=== PATIENT | female | born 1990 | race Caucasian/White ===

== ENCOUNTER 2016-12-09 10:23 | Observation (INO) | payer MEDICAID ==
[~2016-12-09] VITALS: Ht 157.5 cm; Wt 72.6 kg
[2016-12-09 10:25] VITALS: BP 131/76; PULSE 87; RESP 16; TEMP 98; O2SAT 99
--- NOTE | 2016-12-09 10:52 | PD ---
HPI Chief Complaint: Abdominal Pain Time Seen by Provider: 10:44 Travel History International Travel<30 days: No Contact w/Intl Traveler<30days: No Traveled to known affect area: No History of Present Illness HPI 26-year-old female arrives here with 1 day of abdominal pain. The pain seems to radiate from the upper anterior abdomen down into the region of the pelvis and back up towards the posterior of the upper abdomen. There has been no nausea vomiting diarrhea or fever. The patient has scant white discharge, highly unusual for her. She notes some spotting over the last few days which is typical for her menstruation and she has a history of irregular cycles. PFSH Past Medical History Diminished Hearing: No Psychiatric: No Immunizations Current: Yes ?: Unknown : 5 Para: 1 Miscarriage: 4 : 0 Past Surgical History Section: Yes (x 1) Gynecologic Surgery: Yes (D/C AFTER MISCARRIAGE) Social History Alcohol Use: Yes (2 BEERS 2 TIMES A WEEK) Tobacco Use: No (FORMER) Substance Use: No Allergies-Medications (Allergen,Severity, Reaction): Coded Allergies: No Known Allergies (Verified , 12/09/16) Reported Meds & Prescriptions Reported Meds & Active Scripts Active Reported Multiple Vitamin 1 Tab 1 Tab PO DAILY Ibuprofen 600 Mg Tab 600 Mg PO Q6H PRN Review of Systems Except as stated in HPI: all other systems reviewed are Neg General / Constitutional: No: Fever Genitourinary: Positive: Discharge, Vaginal Bleeding Physical Exam Narrative GENERAL: 26-year-old female well-nourished well-developed 20 distress SKIN: Warm and dry. HEAD: Atraumatic. Normocephalic. EYES: Pupils equal and round. No scleral icterus. No injection or drainage. ENT: No nasal bleeding or discharge. Mucous membranes pink and moist. NECK: Trachea midline. No JVD. CARDIOVASCULAR: Regular rate and rhythm. RESPIRATORY: No accessory muscle use. Clear to auscultation. Breath sounds equal bilaterally. GASTROINTESTINAL: Soft. Diffuse generalized tenderness. GENITOURINARY: External genitalia normal. Positive CMT. Dark brown discharge in the vault. No adnexal mass or tenderness. MUSCULOSKELETAL: Extremities without clubbing, cyanosis, or edema. No obvious deformities. NEUROLOGICAL: Awake and alert. No obvious cranial nerve deficits. Motor grossly within normal limits. Five out of 5 muscle strength in the arms and legs. Normal speech. PSYCHIATRIC: Appropriate mood and affect; insight and judgment normal. Data Data Last Documented VS Vital Signs Date Time Temp Pulse Resp B/P Pulse Ox O2 Delivery O2 Flow Rate FiO2 12/09/16 14:44 98 12/09/16 13:25 88 14 112/53 Room Air 12/09/16 10:25 98.0 Vital signs reviewed Orders Gc And Chlamydia Pcr (12/09/16 10:44) Wet Prep Profile (12/09/16 10:44) Urinalysis - C+S If Indicated (12/09/16 10:44) Ed Urine Pregnancytest Poc (12/09/16 10:44) Beta Hcg (Quant/Titer) (12/09/16 11:14) Complete Rh (12/09/16 11:14) Us Pelvis (Ques Pr/Ect)W Trans (12/09/16 ) Complete Blood Count With Diff (12/09/16 13:43) Comprehensive Metabolic Panel (12/09/16 13:43) Lipase (12/09/16 13:43) Iv Access Insert/Monitor (12/09/16 13:43) Ecg Monitoring (12/09/16 13:43) Oximetry (12/09/16 13:43) Sodium Chloride 0.9% Flush (Ns Flush) (12/09/16 13:45) Sodium Chlor 0.9% 1000 Ml Inj (Ns 1000 M (12/09/16 14:45) Diphenhydramine Inj (Benadryl Inj) (12/09/16 16:00) Admit Order (Ed Use Only) (12/09/16 16:20) Ns + Kcl 40 Meq Inj (Ns + Kcl 40 Meq Inj (12/09/16 16:30) Labs Laboratory Tests Test 12/09/16 12/09/16 12/09/16 12/09/16 10:30 10:40 12:22 14:04 Urine Collection Type CLEAN CATCH Urine Color YELLOW Urine Turbidity CLEAR Urine pH 6.0 Urine Specific [place] 1.023 Urine Protein NEG mg/dL Urine Glucose (UA) NEG mg/dL Urine Ketones NEG mg/dL Urine Occult Blood NEG Urine Nitrite NEG Urine Bilirubin NEG Urine Leukocyte Esterase NEG Urine RBC 0-3 /hpf Urine WBC 0-2 /hpf Urine Squamous Epithelial 0-5 /hpf Cells Microscopic Urinalysis Comment CULT NOT INDICATED Urine Collection Time 10:30 Clue Cells (Wet Prep) NONE SEEN Vaginal Trichomonas (Wet Prep) NONE SEEN Vaginal Yeast (Wet Prep) NONE SEEN Chlamydia trachomatis DNA NOT DETECTED (PCR) Neisseria gonorrhoeae DNA NOT DETECTED (PCR) Human Chorionic Gonadotropin, 1626 MIU/ML Quant Blood Type A POSITIVE Rho(D) Type POSITIVE White Blood Count 15.0 TH/MM3 Red Blood Count 3.90 MIL/MM3 Hemoglobin 11.9 GM/DL Hematocrit 36.0 % Mean Corpuscular Volume 92.3 FL Mean Corpuscular Hemoglobin 30.6 PG Mean Corpuscular Hemoglobin 33.2 % Concent Red Cell Distribution Width 12.7 % Platelet Count 309 TH/MM3 Mean Platelet Volume 8.3 FL Neutrophils (%) (Auto) 66.5 % Lymphocytes (%) (Auto) 27.5 % Monocytes (%) (Auto) 5.1 % Eosinophils (%) (Auto) 0.3 % Basophils (%) (Auto) 0.6 % Neutrophils # (Auto) 10.0 TH/MM3 Lymphocytes # (Auto) 4.1 TH/MM3 Monocytes # (Auto) 0.8 TH/MM3 Eosinophils # (Auto) 0.0 TH/MM3 Basophils # (Auto) 0.1 TH/MM3 CBC Comment DIFF FINAL Differential Comment Sodium Level 138 MEQ/L Potassium Level 3.4 MEQ/L Chloride Level 105 MEQ/L Carbon Dioxide Level 25.7 MEQ/L Anion Gap 7 MEQ/L Blood Urea Nitrogen 12 MG/DL Creatinine 0.57 MG/DL Estimat Glomerular Filtration 126 ML/MIN Rate Random Glucose 81 MG/DL Calcium Level 9.1 MG/DL Total Bilirubin 0.6 MG/DL Aspartate Amino Transf 13 U/L (AST/SGOT) Alanine Aminotransferase 17 U/L (ALT/SGPT) Alkaline Phosphatase 60 U/L Total Protein 7.1 GM/DL Albumin 3.7 GM/DL Lipase 107 U/L [facility] Medical Decision Making Medical Screen Exam Complete: Yes Emergency Medical Condition: Yes Medical Record Reviewed: Yes Differential Diagnosis IUP, UTI, ectopic , ov torsion, appendicitis, TOA, cervicitis, BV, Trichomoniasis, ov cyst, hernia, mittelschmerz, pain from menstruation Narrative Course Last 24 hours Impressions Pelvis Ultrasound 12/09/16 0000 Signed Impressions: Service Date/Time: Friday, December 09, 2016 11:41 - CONCLUSION: 1. Large ill-defined masslike area of decreased echogenicity between the uterus and left ovary measuring up to 11.2 x 5.9 x 5.1 cm. This is nonspecific but could represent a mass or complex fluid collection. 2. Apparent small intrauterine gestational sac consistent with a menstrual age of less than 5 weeks of age. This is too early to date. 3. Small amount of free fluid in the cul-de-sac. Ashish Rubio MD Patient reassessed at 2:15 PM and found to be resting comfortably. Results discussed. CBC & BMP Diagram 12/09/16 14:04 LFTs are normal Lipase 107 Urinalysis no UTI GC chlamydia not detected This case was discussed with Dr. Hough, the on-call crop scout. Given the uncertainty of the 11 cm x 5 cm x 5 cm left adnexal mass which appears to be symptomatic for the first time and is present at the time of an intrauterine a pelvis MRI has been ordered. The case has been discussed with the oncoming provider who will follow up the MRI results and disposition appropriately, if necessary admission to the main potentially discharge home. Eb Cali MD Dec 09, 2016 10:52
[2016-12-09] MEDS ORDERED: IBUP-232 PO (11:05)
[2016-12-09] MEDS ORDERED: MULTTAB67 PO (11:05)
[2016-12-09 11:06] LABS: BLOOD, URINE NEG (NEG); GLUCOSE,URINE NEG (NEG); KETONE, URINE NEG (NEG); NITRITE,URINE NEG (NEG)
[2016-12-09 11:10] LABS: METHOD OF COLLECTION CLEAN CATCH; URINE COLOR YELLOW (YELLW/STRAW)
[2016-12-09 11:11] LABS: COMMENT (UR) CULT NOT INDICATED; CULTURE IF INDICATED CULT NOT INDICATED; RBC, URINE 0-3 /hpf (0-3); SQUAMOUS EPITHELIAL CELL URINE 0-5 /hpf (0-5); WBC, URINE 0-2 /hpf (0-5)
[2016-12-09 13:04] LABS: BETA HCG QUANT 1626 MIU/ML (0-5)
[2016-12-09 13:25] VITALS: BP 112/53; PULSE 88; RESP 14; O2SAT 100
--- NOTE | 2016-12-09 13:29 | RADRPT ---
EXAM DATE/TIME: 12/09/2016 11:41 [facility] COMPARISON: No previous studies available for comparison. INDICATIONS : Pelvic pain. LAB(S): Beta-hC,626 MEDICAL HISTORY : . Irregular menstrual cycle. SURGICAL HISTORY : section. Dilation and curettage. ENCOUNTER: Initial ACUITY: 1 day PAIN SCORE: 5/10 LOCATION: Bilateral pelvis MEASUREMENTS: RIGHT OVARY: 3.4 x 1.5 x 1.5 cm UTERUS: 10.0 x 4.9 x 5.7 cm ENDOMETRIAL STRIPE: 11 mm LEFT OVARY: 4.1 x 2.9 x 3.4 cm FREE FLUID: Yes Cul-de-sac, left adnexa CROWN RUMP LENGTH: Non-visualized = WKS DAYS FHR: Non-visualized BPM FINDINGS: UTERUS: There is a small appearance intrauterine gestational sac measuring approximately 6 x 4 x 7 mm. Cyst 2 small to date. There is no pole or yolk sac. RIGHT OVARY: Ovary contains no mass or significant cystic lesion. LEFT OVARY: There is a small simple cyst measuring approximately 1.8 x 1.9 1.6 cm. There is a large ill-defined m asslike area of decreased echogenicity between the uterus and left ovary measuring up to 11.2 x 5.9 x 5.1 cm. Is nonspecific. MISCELLANEOUS: There is a small amount of free fluid in the cul-de-sac. CONCLUSION: 1. Large ill-defined masslike area of decreased echogenicity between the uterus and left ovary measur ing up to 11.2 x 5.9 x 5.1 cm. This is nonspecific but could represent a mass or complex fluid collec tion. 2. Apparent small intrauterine gestational sac consistent with a menstrual age of less than 5 weeks o f age. This is too early to date. 3. Small amount of free fluid in the cul-de-sac. Ashish Rubio MD on December 09, 2016 at 13:19 Board Certified Radiologist. This report was verified electronically.
[2016-12-09] MEDS ORDERED: SODIUM CHLORIDE 0.9% FLUSH 10 ML FLUSH IV FLUSH PRN ×2 (13:45→22:45)
[2016-12-09 14:16] LABS: BASOPHIL # 0.1 TH/MM3 (0-0.2); BASOPHIL % 0.6 % (0.0-2.0); EOSINOPHIL % 0.3 % (0.0-4.0); LYMPH % 27.5 % (9.0-44.0); LYMPHOCYTE # 4.1 TH/MM3 (1.0-4.8); MEAN CELL VOLUME 92.3 FL (80.0-100.0); MEAN CORPUSCULAR HEMOGLOBIN 30.6 PG (27.0-34.0); MEAN CORPUSCULAR HGB CONC 33.2 % (32.0-36.0); MONO % 5.1 % (0.0-8.0); NEUT % 66.5 % (16.0-70.0); PLATELET COUNT 309 TH/MM3 (150-450); RED CELL DISTRIBUTION WIDTH 12.7 % (11.6-17.2)
[2016-12-09 14:28] LABS: HEMO FLAGS DIFF FINAL
[2016-12-09 14:29] LABS: CHLORIDE 105 MEQ/L (98-107); POTASSIUM 3.4 MEQ/L (3.5-5.1); SODIUM (NA) 138 MEQ/L (136-145)
[2016-12-09 14:34] LABS: ANION GAP 7 MEQ/L (5-15); BICARBONATE 25.7 MEQ/L (21.0-32.0); BLOOD UREA NITROGEN 12 MG/DL (7-18)
[2016-12-09 14:37] LABS: ALT (GPT) 17 U/L (10-53); AST (GOT) 13 U/L (15-37); GLOMERULAR FILTRATION RATE 126 ML/MIN (>89)
[2016-12-09 14:38] LABS: TOTAL BILIRUBIN ADULT 0.6 MG/DL (0.2-1.0)
[2016-12-09 14:40] LABS: ALKALINE PHOSPHATASE 60 U/L (45-117)
[2016-12-09 14:44] VITALS: O2SAT 98
[2016-12-09] MEDS ORDERED: SODIUM CHLOR 0.9% 1000 ML INJ 1,000 ML IV ONE (14:45)
[2016-12-09 15:28] LABS: CHLAMYDIA PCR NOT DETECTED (NOT DETECT); NEISSERIA PCR NOT DETECTED (NOT DETECT)
[2016-12-09] MEDS ORDERED: diphenhydrAMINE HCL 50 MG/ML VIAL IV PUSH ONE (16:00)
--- NOTE | 2016-12-09 16:28 | PD ---
Physical Exam Date Seen by Provider: Dec 09, 2016 Time Seen by Provider: 16:25 Narrative This 26-year-old female had presented with abdominal pain. She had had a sudden onset of lower abdominal pain around 3:00 this morning. He is still having some pain. She is 6 para 1. Her last period was in October. She has had one child. She has had a section. She was seen initially by Dr. Cali an ultrasound was ordered which showed a small sac in the uterus. No pole is seen and no heartbeat is seen. There was noted to be a 11 cm density adjacent to the uterus of uncertain etiology. Dr. Cali had considered MRI to further assess this. I have been called by radiology. The patient's titer is 1626 and an ectopic has not been ruled out. The patient is still having some discomfort. She has been hemodynamically stable. Her hemoglobin is 11. She will be admitted to [place] for further evaluation of possible ectopic Data Data Last Documented VS Vital Signs Date Time Temp Pulse Resp B/P Pulse Ox O2 Delivery O2 Flow Rate FiO2 12/09/16 14:44 98 12/09/16 13:25 88 14 112/53 Room Air 12/09/16 10:25 98.0 Orders Gc And Chlamydia Pcr (12/09/16 10:44) Wet Prep Profile (12/09/16 10:44) Urinalysis - C+S If Indicated (12/09/16 10:44) Ed Urine Pregnancytest Poc (12/09/16 10:44) Beta Hcg (Quant/Titer) (12/09/16 11:14) Complete Rh (12/09/16 11:14) Us Pelvis (Ques Pr/Ect)W Trans (12/09/16 ) Complete Blood Count With Diff (12/09/16 13:43) Comprehensive Metabolic Panel (12/09/16 13:43) Lipase (12/09/16 13:43) Iv Access Insert/Monitor (12/09/16 13:43) Ecg Monitoring (12/09/16 13:43) Oximetry (12/09/16 13:43) Sodium Chloride 0.9% Flush (Ns Flush) (12/09/16 13:45) Sodium Chlor 0.9% 1000 Ml Inj (Ns 1000 M (12/09/16 14:45) Diphenhydramine Inj (Benadryl Inj) (12/09/16 16:00) Admit Order (Ed Use Only) (12/09/16 16:20) Ns + Kcl Inj (12/09/16 16:30) Labs Laboratory Tests Test 12/09/16 12/09/16 12/09/16 12/09/16 10:30 10:40 12:22 14:04 Urine Collection Type CLEAN CATCH Urine Color YELLOW Urine Turbidity CLEAR Urine pH 6.0 Urine Specific [place] 1.023 Urine Protein NEG mg/dL Urine Glucose (UA) NEG mg/dL Urine Ketones NEG mg/dL Urine Occult Blood NEG Urine Nitrite NEG Urine Bilirubin NEG Urine Leukocyte Esterase NEG Urine RBC 0-3 /hpf Urine WBC 0-2 /hpf Urine Squamous Epithelial 0-5 /hpf Cells Microscopic Urinalysis Comment CULT NOT INDICATED Urine Collection Time 10:30 Clue Cells (Wet Prep) NONE SEEN Vaginal Trichomonas (Wet Prep) NONE SEEN Vaginal Yeast (Wet Prep) NONE SEEN Chlamydia trachomatis DNA NOT DETECTED (PCR) Neisseria gonorrhoeae DNA NOT DETECTED (PCR) Human Chorionic Gonadotropin, 1626 MIU/ML Quant Blood Type A POSITIVE Rho(D) Type POSITIVE White Blood Count 15.0 TH/MM3 Red Blood Count 3.90 MIL/MM3 Hemoglobin 11.9 GM/DL Hematocrit 36.0 % Mean Corpuscular Volume 92.3 FL Mean Corpuscular Hemoglobin 30.6 PG Mean Corpuscular Hemoglobin 33.2 % Concent Red Cell Distribution Width 12.7 % Platelet Count 309 TH/MM3 Mean Platelet Volume 8.3 FL Neutrophils (%) (Auto) 66.5 % Lymphocytes (%) (Auto) 27.5 % Monocytes (%) (Auto) 5.1 % Eosinophils (%) (Auto) 0.3 % Basophils (%) (Auto) 0.6 % Neutrophils # (Auto) 10.0 TH/MM3 Lymphocytes # (Auto) 4.1 TH/MM3 Monocytes # (Auto) 0.8 TH/MM3 Eosinophils # (Auto) 0.0 TH/MM3 Basophils # (Auto) 0.1 TH/MM3 CBC Comment DIFF FINAL Differential Comment Sodium Level 138 MEQ/L Potassium Level 3.4 MEQ/L Chloride Level 105 MEQ/L Carbon Dioxide Level 25.7 MEQ/L Anion Gap 7 MEQ/L Blood Urea Nitrogen 12 MG/DL Creatinine 0.57 MG/DL Estimat Glomerular Filtration 126 ML/MIN Rate Random Glucose 81 MG/DL Calcium Level 9.1 MG/DL Total Bilirubin 0.6 MG/DL Aspartate Amino Transf 13 U/L (AST/SGOT) Alanine Aminotransferase 17 U/L (ALT/SGPT) Alkaline Phosphatase 60 U/L Total Protein 7.1 GM/DL Albumin 3.7 GM/DL Lipase 107 U/L [facility] Medical Record Reviewed: Yes Supervised Visit with EVAN: No Differential Diagnosis Differential includes early IUP, ectopic Narrative Course Ectopic has not been ruled out. The patient appears hemodynamically stable now but she is having discomfort and had quite severe discomfort earlier today. Radiology has seen a sac in the uterus but no pole is seen to be sure that this is a gestational sac. I discussed the case with Dr. Hough and she will be admitted to [place] Diagnosis Primary Impression: Additional Impression: possible ectopic pregnanc Admitting Information Admitting Physician Requests: Admit Fadi Nunes MD Dec 09, 2016 16:28
[2016-12-09] MEDS ORDERED: NS + KCL 40 MEQ INJ 1,000 ML IV SCH (16:30)
[2016-12-09 16:34] VITALS: BP 104/69; PULSE 79; RESP 20
[2016-12-09 18:45] VITALS: BP 106/54; PULSE 92; RESP 18; TEMP 98.1; O2SAT 99
[2016-12-09 20:00] VITALS: BP 108/53; PULSE 75; RESP 17; TEMP 98.1; O2SAT 97
[2016-12-09] MEDS ORDERED: ONDANSETRON HCL 4 MG/2 ML VIAL IV PRN (22:45)
[2016-12-09] MEDS ORDERED: ACETAMINOPHEN 325 MG TAB PO PRN (22:45)
[2016-12-09] MEDS ORDERED: ZOLPIDEM TARTRATE 5 MG TAB PO PRN (22:45)
[2016-12-09] MEDS ORDERED: oxyCODONE/ACETAMINOPHEN 5 MG/325 MG TAB PO PRN (22:45)
--- NOTE | 2016-12-09 22:54 | HHI.HP ---
HPI Chief Complaint Abdominal pain, pelvic pain noted since very early hours of yesterday morning Date Seen: Dec 09, 2016 Travel History International Travel<30 Days: No Contact w/Intl Traveler<30Days: No Known Affected Area: No History of Present Illness HPI Recent is a 26-year-old white female A2 who was referred from [place] ER for evaluation of possible ectopic . The patient did not know she was and had not missed her period and is been doing well until earlier yesterday when she started having abdominal pain and has been spotting somewhat for a few days ultrasound done in [place] shows uterus. Appears to be a small gestational sac but no pole or yolk sac seen and a possible mass on the left side as big as potentially 11 cm, her quantitative hCG --1625 Para: 1 : 4 History Obstetric History Obstetric History 1 , multiple early losses with 1 at 15 years of age she had a D&C the others no D&C Past Surgical History Narrative Surgical 1 1 D&C Social History Alcohol Use: No Tobacco Use: No Substance Abuse: No Allergies-Medications (Allergen,Severity, Reaction): Coded Allergies: No Known Allergies (Verified , 12/09/16) Home Meds Reported Medications Multiple Vitamin 1 Tab1 Tab PO DAILY Ref 0 12/09/16 Ibuprofen 600 Mg [id number] Mg PO Q6H PRN (PAIN) Ref 0 12/09/16 Review of Systems General / Constitutional: No: Fever, Weight Gain, Chills, Other Eyes: No: Diploplia, Blurred Vision, Visual changes, Pain, Photophobia HENT: No: Headaches, Vertigo, Lightheadedness Cardiovascular: No: Irregular Rhythm, Chest Pain or Discomfort, Palpitations, Tachycardia, Syncope, Varicosities, Edema, Cyanosis Respiratory: No: Cough, Short of Breath, Other Gastrointestinal: Abdominal Pain, No: Nausea, Vomiting, Diarrhea Genitourinary: Vaginal Bleeding, No: Decreased Urinary Output, Oliguria Musculoskeletal: No: Limited ROM, Weakness, Cramping, Edema, Pain Skin: No Rash, No Itching, No Dryness, No Lumps, No Change in Pigmentation, No Change in Nails, No Alopecia, No Lesions Neurologic: No: Weakness, Dizziness, Syncope, Focal Abnormalities, Coordination Problem, Headache, Slurred Speech, Seizures Psychiatric: No: Depression, Suicidal Ideations, Homicidal Ideation Endocrine: No: Heat Intolerance, Cold Intolerance, Polydipsia, Polyuria, Other Physical Exam Vital Signs Date Time Temp Pulse Resp B/P Pulse Ox O2 Delivery O2 Flow Rate FiO2 12/09/16 20:00 98.1 75 17 108/53 97 12/09/16 18:45 98.1 92 18 106/54 99 12/09/16 16:34 79 20 104/69 12/09/16 14:44 98 12/09/16 13:25 88 14 112/53 100 Room Air 12/09/16 10:54 16 12/09/16 10:25 98.0 87 16 131/76 99 Narrative GENERAL: Well-nourished, well-developed patient. SKIN: Warm and dry. HEAD: Normocephalic and atraumatic. EYES: No scleral icterus. No injection or drainage. ENT: No nasal drainage noted. Mucous membranes pink. Airway patent. NECK: Supple, trachea midline. No JVD. CARDIOVASCULAR: Regular rate and rhythm without murmurs, gallops, or rubs. RESPIRATORY: Breath sounds equal bilaterally. No accessory muscle use. BREASTS: Bilateral exam showed no masses , no retractions, no nipple discharge. ABDOMEN/GI: Abdomen soft, 2+tender in lower quads , 1+ tender in upper quads, bowel sounds present, minimal rebound, no guarding , no surgical abdomen GENITOURINARY: External Genitalia: intact and normal in appearance Minimal old black blood in the vagina Cervix: [+1-2+ cervical motion tenderness-] Dilatation: [-Closed] Effacement: [-] Thick Uterus is anteflexed 1+ tender 8 weeks size no adnexal masses and 1-2+ pain on both sides, supposedly mass seen on ultrasound was 11 cm and on the left side however I cannot appreciate any significant mass on the left side or right EXTREMITIES: No cyanosis or edema. BACK: Nontender without obvious deformity. No CVA tenderness. NEUROLOGICAL: Awake and alert. Motor and sensory grossly within normal limits. Five out of 5 muscle strength in all muscle groups. Normal speech. Data Data Orders Gc And Chlamydia Pcr (12/09/16 10:44) Wet Prep Profile (12/09/16 10:44) Urinalysis - C+S If Indicated (12/09/16 10:44) Ed Urine Pregnancytest Poc (12/09/16 10:44) Beta Hcg (Quant/Titer) (12/09/16 11:14) Complete Rh (12/09/16 11:14) Us Pelvis (Ques Pr/Ect)W Trans (12/09/16 ) Complete Blood Count With Diff (12/09/16 13:43) Comprehensive Metabolic Panel (12/09/16 13:43) Lipase (12/09/16 13:43) Iv Access Insert/Monitor (12/09/16 13:43) Ecg Monitoring (12/09/16 13:43) Oximetry (12/09/16 13:43) Sodium Chloride 0.9% Flush (Ns Flush) (12/09/16 13:45) Sodium Chlor 0.9% 1000 Ml Inj (Ns 1000 M (12/09/16 14:45) Diphenhydramine Inj (Benadryl Inj) (12/09/16 16:00) Admit Order (Ed Use Only) (12/09/16 16:20) Ns + Kcl 40 Meq Inj (Ns + Kcl 40 Meq Inj (12/09/16 16:30) Place In Observation (12/09/16 ) Diet Regular Basic (12/10/16 Breakfast) Vital Signs (Adult) APARNA.[id number] AWAKE (12/09/16 22:35) Activity Bed Rest With Brp (12/09/16 22:35) Lactated Ringer's 1000 Ml Inj (Lr 1000 M (12/09/16 23:00) Acetaminophen (Tylenol) (12/09/16 22:45) Sodium Chloride 0.9% Flush (Ns Flush) (12/10/16 09:00) Sodium Chloride 0.9% Flush (Ns Flush) (12/09/16 22:45) Zolpidem (Ambien) (12/09/16 22:45) Ondansetron Inj (Zofran Inj) (12/09/16 22:45) Oxycodone-Acetamin 5-325 Mg (Percocet (12/09/16 22:45) Ketorolac Inj (Toradol Inj) (12/09/16 22:45) Beta Hcg (Quant/Titer) (12/10/16 08:00) Us Pelvis Preg W Transvaginal (12/10/16 09:00) Labs Laboratory Tests Test 12/09/16 12/09/16 12/09/16 12/09/16 10:30 10:40 12:22 14:04 Urine Collection Type CLEAN CATCH Urine Color YELLOW Urine Turbidity CLEAR Urine pH 6.0 Urine Specific [place] 1.023 Urine Protein NEG Urine Glucose (UA) NEG Urine Ketones NEG Urine Occult Blood NEG Urine Nitrite NEG Urine Bilirubin NEG Urine Leukocyte Esterase NEG Urine RBC 0-3 Urine WBC 0-2 Urine Squamous Epithelial 0-5 Cells Microscopic Urinalysis Comment CULT NOT INDICATED Urine Collection Time 10:30 Clue Cells (Wet Prep) NONE SEEN Vaginal Trichomonas (Wet Prep) NONE SEEN Vaginal Yeast (Wet Prep) NONE SEEN Chlamydia trachomatis DNA NOT DETECTED (PCR) Neisseria gonorrhoeae DNA NOT DETECTED (PCR) Human Chorionic Gonadotropin, 1626 Quant Blood Type A POSITIVE Rho(D) Type POSITIVE White Blood Count 15.0 Red Blood Count 3.90 Hemoglobin 11.9 Hematocrit 36.0 Mean Corpuscular Volume 92.3 Mean Corpuscular Hemoglobin 30.6 Mean Corpuscular Hemoglobin 33.2 Concent Red Cell Distribution Width 12.7 Platelet Count 309 Mean Platelet Volume 8.3 Neutrophils (%) (Auto) 66.5 Lymphocytes (%) (Auto) 27.5 Monocytes (%) (Auto) 5.1 Eosinophils (%) (Auto) 0.3 Basophils (%) (Auto) 0.6 Neutrophils # (Auto) 10.0 Lymphocytes # (Auto) 4.1 Monocytes # (Auto) 0.8 Eosinophils # (Auto) 0.0 Basophils # (Auto) 0.1 CBC Comment DIFF FINAL Differential Comment Sodium Level 138 Potassium Level 3.4 Chloride Level 105 Carbon Dioxide Level 25.7 Anion Gap 7 Blood Urea Nitrogen 12 Creatinine 0.57 Estimat Glomerular Filtration 126 Rate Random Glucose 81 Calcium Level 9.1 Total Bilirubin 0.6 Aspartate Amino Transf 13 (AST/SGOT) Alanine Aminotransferase 17 (ALT/SGPT) Alkaline Phosphatase 60 Total Protein 7.1 Albumin 3.7 Lipase 107 Assessment/Plan Assessment and Plan 26-year-old white female a 2 previous who presents as part of rule out ectopic . Patient's quantitative hCG is 1600, uterus on ultrasound shows a gestational sac presents small no pole or yolk sac seen but the positive" O" sign the hyperechogenic-like tissue in a [place] is there and it's very consistent with an early gestational sac, no specific cystic structures could be seen in either adnexa both ovaries are seen on the left side facing the measuring some type of soft tissue density does not have an appearance of a cystic mass from a gynecologic origin, and on palpation of the left side there is no 11 cm mass present my impression is one of probable blighted ovum empty sac that is trying to miscarry, this is versus just early IUP of with pain I doubt seriously that she has an ectopic gestation findings inside the uterus R so consistent with an early intrauterine . The potential for being an ectopic is extremely low plan to recheck a quantitative hCG and ultrasound in the morning compared to the numbers we have from today and very likely will discharge home on something for pain and bedrest as long as the clinical situation does not deteriorate Brat Hough II, MD Dec 09, 2016 22:54
[2016-12-09] MEDS: KETOROLAC TROMETHAMINE 30 MG/ML (IVP) VIAL IV PUSH PRN (22:59)
[2016-12-09] MEDS: LACTATED RINGER'S 1000 ML INJ 1,000 ML IV SCH (22:59)
[2016-12-10] VITALS (7 sets, daily range): BP systolic 100–114; BP diastolic 51–60; PULSE 68–90; RESP 14–19; TEMP 97.3–98.1; O2SAT 97–100
[2016-12-10] MEDS: SODIUM CHLORIDE 0.9% FLUSH 10 ML FLUSH IV FLUSH SCH ×2 (08:50→21:00)
--- NOTE | 2016-12-10 09:31 | RADRPT ---
EXAM DATE/TIME: 12/10/2016 08:13 [facility] COMPARISON: US PELVIS (QUEST PREG/ECTOPIC) W/TRANSVAG, December 09, 2016, 11:41. INDICATIONS : Pelvic pain. LAB(S): Beta-hC,626 MEDICAL HISTORY : . Irregular menstrual cycle. SURGICAL HISTORY : section. Dilation and curettage. ENCOUNTER: Subsequent ACUITY: 2 days PAIN SCORE: 7/10 LOCATION: Bilateral pelvis MEASUREMENTS: UTERUS: 8.5 x 5.3 x 4.6 cm ENDOMETRIAL STRIPE: 7 mm RIGHT OVARY: 2.9 x 1.8 x 1.9 cm LEFT OVARY: 5.5 x 5.6 x 3.3 cm FREE FLUID: Yes FINDINGS: Small sac in the vaginal region measuring 8 mm. No intrauterine . Complex lesion again seen with the left ovary with some flow, measuring 1.9 x 1.8 cm. There is also cyst the left ovary measuri ng 1.6 cm. Complex fluid in the cul-de-sac. The area of decreased echogenicity adjacent to left ovary measures 4.1 cm. CONCLUSION: 1. Intrauterine not seen. Small sac in the vaginal canal could be an impending . 2. Complex lesion left ovary measuring 1.8 x 1.9 cm, can be complex cyst. Ectopic cannot be excluded. 3. Complex fluid in the cul-de-sac and adjacent to left ovary likely hemorrhage. 4. Close interval followup recommended. Daniel Rhodes MD on December 10, 2016 at 9:22 Board Certified Radiologist. This report was verified electronically.
[2016-12-10] MEDS: LACTATED RINGER'S 1000 ML INJ 1,000 ML IV SCH ×2 (09:59→22:28)
[2016-12-10] MEDS: KETOROLAC TROMETHAMINE 30 MG/ML (IVP) VIAL IV PUSH PRN ×2 (11:41→22:25)
[2016-12-10 13:51] LABS: BETA HCG QUANT 2248 MIU/ML (0-5)
--- NOTE | 2016-12-10 18:25 | HHI.PR ---
Subjective Remarks Pt reports feeling much better. Has received one dose Toradol. No nausea or vomiting. Minimal vaginal bleeding. Objective Vital Signs Date Time Temp Pulse Resp B/P Pulse Ox O2 Delivery O2 Flow Rate FiO2 12/10/16 16:00 97.6 88 14 105/51 98 12/10/16 12:00 97.5 84 18 108/55 100 12/10/16 08:00 97.3 84 16 114/59 98 12/10/16 04:00 97.5 90 18 100/52 99 12/10/16 00:12 16 12/10/16 00:00 98.1 83 18 107/51 97 12/09/16 20:00 98.1 75 17 108/53 97 12/09/16 18:45 98.1 92 18 106/54 99 Abdomen palpates soft, non distended. No masses palpable. Mildy tender over low abdomen, no guarding or rebound. I/O 12/09/16 12/09/16 12/09/16 12/10/16 12/10/16 12/10/16 07:00 15:00 23:00 07:00 15:00 23:00 Intake Total 500 ml 240 ml Balance 500 ml 240 ml Intake Oral 500 ml 240 ml # Voids 3 6 # Bowel Movements 1 Result Diagram: 12/09/16 1404 12/09/16 1404 Assessment and Plan Assessment and Plan Pt is a 26 yo . LMP mid October, but periods are irregular. Pt reports sudden onset severe low abdominal pain AM yesterday. Seen in ER at [place]. Quant hCG was 1626, and US showed small intrauterine gestational sac,with 11cm left adnexal mass. Pt transferred here and examined by Dr Hough.No large left adnexal mass appreciated. Repeat US here showed no IUP. There was a small sac in the vaginal canal. There was a complex lesion left ovary measuring 1.6cm, and area of decreased echogenity adjacent to left ovary measuring 4.1cm. complex free fluid in cul-de-sac. Quant hCG 24 hours after initial is 2248 There has been interval increase in Quant hCG, no furher vaginal bleeding, and pt is clinically improved. Differential diagnosis is early IUP vrs ectopic, still possible miscarriage. We will repeat quant hCG 48 hours after initial, and US in AM. We will make her NPO after midnight. Ryland Jain MD Dec 10, 2016 18:25
[2016-12-11] VITALS: BP 104/60; PULSE 68; RESP 18; TEMP 97.5; O2SAT 100
[2016-12-11 05:37] LABS: AUTOMATED NEUTROPHIL # 4.7 TH/MM3 (1.8-7.7); BASOPHIL # 0.1 TH/MM3 (0-0.2); BASOPHIL % 0.5 % (0.0-2.0); EOSINOPHIL # 0.1 TH/MM3 (0-0.4); EOSINOPHIL % 1.1 % (0.0-4.0); HEMATOCRIT 32.7 % (35.0-46.0); HEMO FLAGS DIFF FINAL; LYMPH % 41.3 % (9.0-44.0); MEAN CELL VOLUME 92.9 FL (80.0-100.0); MEAN CORPUSCULAR HEMOGLOBIN 30.9 PG (27.0-34.0); MEAN CORPUSCULAR HGB CONC 33.3 % (32.0-36.0); MONO % 8.4 % (0.0-8.0); NEUT % 48.7 % (16.0-70.0); PLATELET COUNT 267 TH/MM3 (150-450); RED BLOOD COUNT 3.52 MIL/MM3 (4.00-5.30); RED CELL DISTRIBUTION WIDTH 13.1 % (11.6-17.2); WHITE BLOOD COUNT 9.6 TH/MM3 (4.0-11.0)
[2016-12-11 06:36] LABS: BETA HCG QUANT 2278 MIU/ML (0-5)
[2016-12-11 08:00] VITALS: BP 100/63; PULSE 66; RESP 20; TEMP 98.7; O2SAT 100
[2016-12-11] MEDS: SODIUM CHLORIDE 0.9% FLUSH 10 ML FLUSH IV FLUSH SCH (09:00)
[2016-12-11] MEDS: LACTATED RINGER'S 1000 ML INJ 1,000 ML IV SCH ×2 (09:00→14:05)
[2016-12-11] MEDS: KETOROLAC TROMETHAMINE 30 MG/ML (IVP) VIAL IV PUSH PRN (09:12)
--- NOTE | 2016-12-11 11:52 | RADRPT ---
EXAM DATE/TIME: 12/11/2016 09:24 [facility] COMPARISON: US PELVIS (QUEST PREG/ECTOPIC) W/TRANSVAG, December 09, 2016, 11:41. INDICATIONS : Pelvic pain/follow up. LAB(S): Beta-hC MEDICAL HISTORY : . Irregular menstrual cycle. SURGICAL HISTORY : section. Dilation and curettage. ENCOUNTER: [facility] ACUITY: 4-6 days PAIN SCORE: 0/10 LOCATION: Bilateral pelvis MEASUREMENTS: UTERUS: 8.0 x 6.0 x 4.6 cm ENDOMETRIAL STRIPE: 19 mm RIGHT OVARY: 3.0 x 1.4 x 1.7 cm LEFT OVARY: 5.3 x 5.3 x 3.1 cm FREE FLUID: Yes Complex, left adnexa FINDINGS: UTERUS: Cystic structure in the vagina measures 8 x 6 x 4 mm. Nabothian cysts are seen. There is thickening o f the endometrium measuring 19 mm. No intrauterine . RIGHT OVARY: Ovary contains no mass or significant cystic lesion. LEFT OVARY: Complex lesion again seen unchanged. There is slow. MISCELLANEOUS: Complex free fluid. CONCLUSION: 1. No intrauterine . 2. Complex lesion with peripheral flow in left ovary is unchanged. Ectopic is still not exc luded. 3. Complex fluid unchanged. Daniel Rhodes MD on December 11, 2016 at 11:03 Board Certified Radiologist. This report was verified electronically.
[2016-12-11 12:00] VITALS: BP 104/63; PULSE 70; RESP 21; TEMP 98.1; O2SAT 100
--- NOTE | 2016-12-11 15:28 | HHI.PR ---
Subjective Remarks Discharge summary; This patient is a 26-year-old 4 para 1 AB 2 her last normal menstrual period was in October 2016 on December 09 she presented to the [facility] emergency room complaining of lower abdominal pain. At that time a beta hCG was done which was 1626, ultrasound was done which showed a small gestational sac within the uterus consistent with about 5 weeks gestation There was also a large 11 cm cystic structure between the left ovary and the uterine wall Patient was not actively bleeding at that time her vital signs were stable her hemoglobin was 11 She was transferred to the emergency room at [facility] She was admitted by the [facility] helper induction OB hospitalist with repeat beta hCG the next morning which was 2248 a repeat ultrasound done at that time showed that the intrauterine sac head moved down towards the cervical os the patient was not bleeding however at this time Bimanual exam also demonstrated that there was no palpable masses in the left adnexa the patient was mildly tender She was put on observation this morning she had a repeat beta hCG and a repeat ultrasound beta hCG was 2278 The ultrasound showed that there was no intrauterine at the 11 cm mass of decreased down to approximately 4 cm Hemoglobin this morning 10.9 hematocrit of 32.7 Ultrasound the right ovary measures 3 x 1.4 x 1.7 the left measures 5.3 x 5.3 x 3.1 cystic structure has moved down towards the vagina Presently the patient has no complaints she is ambulating well no weakness or dizziness when she stands minimal amount of discomfort in her lower abdomen she agrees with the plan of sending her home Objective - Vital Signs Date Time Temp Pulse Resp B/P (MAP) Pulse Ox O2 Delivery O2 Flow Rate FiO2 12/11/16 12:00 98.1 70 21 104/63 (77) 100 12/09/16 13:25 Room Air Result Diagram: 12/11/16 0410 12/09/16 1404 Other Results As previously mentioned CBC of 10.9 hematocrit of 30 2. 7 repeat beta-hCG 2278 GC Chlamydia are negative Wet prep negative Blood type is A+ Ultrasound results previously given Objective Remarks Vital Signs, 24 Hour Date Time Temp Pulse Resp B/P (MAP) Pulse Ox O2 Delivery O2 Flow Rate FiO2 12/11/16 12:00 98.1 70 21 104/63 (77) 100 12/11/16 10:15 16 12/11/16 08:00 98.7 66 20 100/63 (75) 100 12/11/16 00:00 97.5 68 18 104/60 (75) 100 12/10/16 22:00 97.5 68 18 104/60 (75) 100 12/10/16 20:00 98.1 71 19 110/52 (71) 100 12/10/16 16:00 97.6 88 14 105/51 (69) 98 Allergies Coded Allergies No Known Allergies (Verified12/09/16) Intake/Outtake 12/11/16 12/11/16 10:59 22:59 Intake Total 0 ml 700 ml Balance 0 ml 700 ml Laboratory Tests per [facility] Test 12/11/16 04:10 Red Blood Count 3.52 MIL/MM3 White Blood Count 9.6 TH/MM3 Active Scripts Active Reported Multiple Vitamin 1 Tab 1 Tab PO DAILY Ibuprofen 600 Mg Tab 600 Mg PO Q6H PRN A/P Assessment and Plan Assessment: Spoke with Dr. Jennifer Lyons who is covering the [employer] service for the emergency room. States to have the patient follow-up in her office she is to call tomorrow morning for an appointment States that given the ultrasound report of an intrauterine possible early IUP versus early spontaneous AB Associated with a left corpus luteal cysts Given the fact that the sac was in the uterus doubt ectopic Patient is clinically stable Plan Discharge patient home Limited activity over the next 24 hours Monitor for bleeding increase pain weakness or dizziness Accelerations stay she lives 5 minutes from the [facility] She was told if she has any problems heavy vaginal bleeding weakness or dizziness she is to go straight to the emergency room Dr. Lyons will follow up in the office tomorrow Discharge Planning Discharge home Philly Sanchez MD Dec 11, 2016 15:28
== END 2016-12-11 17:09 | disposition home or self-care (01) ==
LOC: PHED 10:23 → INTOOBSV 16:23 → PHEDA 16:23 → HOCB 18:30
PROVIDERS: ADMIT Obstetrics & Gynecology Maternal & Fetal Medicine; ATTEND Obstetrics & Gynecology Maternal & Fetal Medicine
DX: O26.891 Other specified pregnancy related conditions, first trimester (principal); R10.30 Lower abdominal pain, unspecified; R10.2 Pelvic and perineal pain; O26.851 Spotting complicating pregnancy, first trimester; N83.10 Corpus luteum cyst of ovary, unspecified side
CPT/HCPCS: 76700; 76801; 76817; 80053; 81001; 83690; 84702; 84703; 85025; 86901; 87210; 87491; 87591; 96361; 96374; 96375; 96376; 99285; G0378; J1885; J3480; J7030; J7120

== ENCOUNTER 2018-01-11 21:06 | Inpatient (IN) ==
[2018-01-11] MEDS ORDERED: Sodium Chlor 0.9% Inj 500 ML IV.SIG PRN (21:22)
[2018-01-11] MEDS ORDERED: Naloxone Inj 0.4 MG/ML Vial IV.PUSH PRN (21:22)
[2018-01-11] MEDS ORDERED: Sod Chloride 0.9% Inj 1,000 ML IV.CONT PRN (21:22)
[2018-01-11] MEDS ORDERED: fentaNYL Citrate Inj 100 MCG/2 ML Ampul IV.PUSH PRN ×2 (21:22)
[2018-01-11] MEDS ORDERED: Oxytocin 30 Units/500ml Premix 30 UNITS/500 ML BAG IV.SIG ONE (21:22)
[2018-01-11] MEDS ORDERED: Citric Acid/Sodium Citrate Liq 30 ML UDC PO SCH (21:30)
[2018-01-11] MEDS ORDERED: Lidocaine PF 1% Inj 5 ML Vial OTHER ONE (21:44)
[2018-01-11] MEDS ORDERED: Lidocaaine 1.5%/Epinephrine 1:200,000 PF Inj 5 ML Amp OTHER ONE (21:44)
[2018-01-11] MEDS ORDERED: fentaNYL 2MCG-Bupiv 0.125% Epi 150 ML EPIDURAL ONE (21:44)
[2018-01-11 21:45] LABS: Baso % (Auto) 0.4 % (0.0-2.0); Eos % (Auto) 0.4 % (0.0-4.0); Hematocrit 38.1 % (35.0-46.0); Hemoglobin 12.9 gm/dL (11.6-15.3); Lymph # (Auto) 3.2 th/mm3 (1.0-4.8); Lymph % (Auto) 25.7 % (9.0-44.0); Mean Corpuscular HGB Conc 33.9 % (32.0-36.0); Mean Corpuscular Hemoglobin 31.1 pg (27.0-34.0); Mean Corpuscular Volume 91.7 fL (80.0-100.0); Mean Platelet Volume 9.8 fL (7.0-11.0); Mono # (Auto) 0.8 th/mm3 (0.0-0.9); Mono % (Auto) 6.7 % (0.0-8.0); Neut # (Auto) 8.4 th/mm3 (1.8-7.7); Neut % (Auto) 66.8 % (16.0-70.0); Platelet Count 225 th/mm3 (150-450); Red Blood Count 4.15 mil/mm3 (4.00-5.30); Red Cell Distribution Width 14.5 % (11.6-17.2); White Blood Count 12.6 th/mm3 (4.0-11.0)
[2018-01-11] MEDS ORDERED: Penicillin G Sodium Inj 2,500,000 UNITS in Sodium Chlor 0.9% Inj 100 ML IV.SIG SCH (22:00)
[2018-01-11] MEDS ORDERED: fentaNYL Citrate Inj 100 MCG/2 ML Ampul EPIDURAL ONE (22:11)
[2018-01-11] MEDS ORDERED: fentaNYL 2MCG-Bupiv 0.125% Epi 150 ML EPIDURAL PRN (22:11)
[2018-01-12 00:23] LABS: Cord Arterial Blood HCO3 18.4
[2018-01-12 00:27] LABS: Bilirubin,Urine Negative (Negative); Clarity,Urine Hazy (Clear); Color,Urine Yellow (Yellw/Straw); Glucose,Urine (UA) Negative (Negative); Hyaline Casts,Urine 4 /lpf (0-3); Leukocyte Esterase,Urine Negative (Negative); Mucus,Urine Few /lpf (Occasional); Nitrite,Urine Negative (Negative); Specific Gravity,Urine 1.013 (1.002-1.035); Transitional Epi Cells,Urine <1 /hpf
[2018-01-12 00:30] LABS: Amphetamine Urine With Conf Neg (Neg); Benzodiazepine Urine With Conf Neg (Neg)
[2018-01-12] MEDS ORDERED: Lidocaine 1% Inj 50 ML Vial ONE (00:33)
[2018-01-12] MEDS ORDERED: Zolpidem Tartrate 5 MG Tablet PO PRN (01:00)
[2018-01-12] MEDS ORDERED: Acetaminophen 325 MG Tablet PO PRN (01:00)
[2018-01-12] MEDS ORDERED: Bisacodyl 10 MG Supp RECTAL PRN (01:00)
[2018-01-12] MEDS ORDERED: Naloxone Inj 0.4 MG/ML Vial IV.PUSH PRN (01:00)
[2018-01-12] MEDS ORDERED: Benzocaine 20% Top Spray 60 ML Can TOPICAL PRN (01:00)
[2018-01-12] MEDS ORDERED: Oxytocin 30 Units/500ml Premix 30 UNITS/500 ML BAG IV.CONT PRN (01:00)
[2018-01-12] MEDS: Clindamycin 900 mg/NS Premix 900 MG/50 ML PIGGYBACK IV.SIG SCH ×3 (02:01→18:16)
[2018-01-12] MEDS: Witch Hazel 50%/Glyderin 12.5% 40 Pad Jar RECTAL PRN (06:09)
[2018-01-12] MEDS: Diphenoxylate/Atropine 2.5/0.025 MG Tablet PO SCH ×3 (06:30→18:16)
[2018-01-12] MEDS: Senna/Docusate Sodium 8.6/50 MG Tablet PO SCH ×2 (10:36→22:45)
[2018-01-12] MEDS ORDERED: Measles/Mumps/Rubella Vaccine Inj 0.5 ML Vial SQ ONE (16:00)
[2018-01-12] MEDS ORDERED: Diphtheria/Tetanus/Pertussis Vaccine Inj 0.5 ML Syringe IM ONE (16:00)
[2018-01-13] MEDS: Diphenoxylate/Atropine 2.5/0.025 MG Tablet PO SCH ×2 (00:07→06:14)
[2018-01-13] MEDS: Clindamycin 900 mg/NS Premix 900 MG/50 ML PIGGYBACK IV.SIG SCH ×3 (01:39→17:54)
[2018-01-13] MEDS: Senna/Docusate Sodium 8.6/50 MG Tablet PO SCH ×2 (09:14→23:29)
[2018-01-13] MEDS: Witch Hazel 50%/Glyderin 12.5% 40 Pad Jar RECTAL PRN (09:14)
[2018-01-14] MEDS: Clindamycin 900 mg/NS Premix 900 MG/50 ML PIGGYBACK IV.SIG SCH ×2 (02:38→09:19)
[2018-01-14] MEDS: Senna/Docusate Sodium 8.6/50 MG Tablet PO SCH (08:32)
== END 2018-01-14 12:00 | disposition home or self-care (01) ==
LOC: HOBED 21:06 → H2E 21:25 → H1EA 01-12 04:45
PROVIDERS: ADMIT Obstetrics & Gynecology Maternal & Fetal Medicine; ATTEND Obstetrics & Gynecology Maternal & Fetal Medicine